=== PATIENT | female | born 1950 | race Caucasian/White ===

== ENCOUNTER → 2016-10-29 | Outpatient (CLI) | payer MEDICARE ==
--- NOTE | 2016-10-29 15:50 | BD ---
EXAMINATION TYPE: MG DEXA axial skeleton. DATE OF EXAM: 10/29/2016 1:57 PM COMPARISON: Prior DEXA bone scan January 14, 2013. CLINICAL HISTORY: Disorder of bone per order. Height: 62.5 IN Weight: 205 LBS FRAX RISK QUESTIONS: Alcohol (3 or more units per day): NO Family History (Parent hip fracture): NO Glucocorticoids (More than 3mos): NO (Ex: prednisone, prednisolone, methylprednisolone, dexamethasone, and hydrocortisone). History of Fracture in Adulthood: NO Secondary Osteoporosis: 1. Type 1 Diabetes: NO 2. Hyperthyroidism: NO 3. Menopause before 45: NO 4. Malnutrition: NO 5. Chronic liver disease: NO Rheumatoid Arthritis: NO Current Tobacco Use: NO RISK FACTORS HISTORY OF: Active: YES Postmenopausal woman: AGE 51 Take estrogen and/or progesterone medications: NOT N OW How long: CONTROL AGE 26 - 36 MEDICATIONS: Thyroid Medications: YES Which medication: Synthroid How Lon + YRS Osteoporosis Medications: NOT NOW Which medication: Boniva How Long: AGE 56 - 59 Additional Medications: CALCIUM, VIT D, SYNTHROID, TENORMIN,CHOLESTEROL MED, EXAM MEASUREMENTS: Bone mineral densitometry was performed using the [employer] System. Bone mineral density as measured about the Lumbar spine is: ----- L1-L4(G/cm2): 1.317 T Score Values are as follows: ----- L2: 0.6 ----- L3: 0.9 ----- L4: 1.8 ----- L1-L4: 1.1 Bone mineral density has: Increased 0.2% since study of: 01/14/2013 Bone mineral density about the R hip (g/cm2): 0.847 Bone mineral density about the L hip (g/cm2): 0.848 T Score values are as follows: -----R Neck: -1.4 -----L Neck: -1.4 -----R Intertrochanter: -1.4 -----L Intertrochanter: -1.4 Bone mineral density has: Decreased -2.0% since study of: 01/14/2013 IMPRESSION: Osteopenia (T Score between -2.5 and -1 as noted by T score values in both hips remains present. Ther e remains slightly increased risk of fracture and the patient may be considered for treatment. Re-Sc reen 1-2 years. NOTE: T-SCORE=SD OF THE YOUNG ADULT MEAN.
--- NOTE | 2016-10-31 07:43 | MM ---
Reason for exam: screening (asymptomatic). Last mammogram was performed 3 years and 8 months ago. History: Patient is postmenopausal. Physical Findings: A clinical breast exam by your physician is recommended on an annual basis and results should be correlated with mammographic findings. MG 3D Screening Mammo W/Cad Bilateral CC and MLO view(s) were taken. Prior study comparison: February 22, 2013, bilateral digital screening mammo w/CAD. January 15, 2012, bilateral digital screening mammo w/CAD. March 31, 2010, bilateral digital screening mammogram. There are scattered fibroglandular densities. No significant changes when compared with prior studies. ASSESSMENT: Negative, BI-RAD 1 RECOMMENDATION: Routine screening mammogram of both breasts in 1 year.
== END ==
LOC: RADMAMWWP 13:53
PROVIDERS: ATTEND Obstetrics & Gynecology
DX: Z12.31 Encounter for screening mammogram for malignant neoplasm of breast (principal); M85.851 Other specified disorders of bone density and structure, right thigh; M85.852 Other specified disorders of bone density and structure, left thigh
CPT/HCPCS: 77080; 77063; G0202

== ENCOUNTER → 2019-05-26 | Outpatient (CLI) | payer MEDICARE ==
--- NOTE | 2019-05-26 11:04 | BD ---
EXAMINATION TYPE: Axial Bone Density DATE OF EXAM: 05/26/2019 COMPARISON: 10.29.2016 CLINICAL HISTORY: M [age] Height: 62.5 Weight: 183.2 FRAX RISK QUESTIONS: Alcohol (3 or more units per day): no Family History (Parent hip fracture): no Glucocorticoids (More than 3mos): no (Ex: prednisone, prednisolone, methylprednisolone, dexamethasone, and hydrocortisone). History of Fracture in Adulthood: no Secondary Osteoporosis: 1. Type 1 Diabetes: no 2. Hyperthyroidism: no 3. Menopause before 45: no 4. Malnutrition: no 5. Chronic liver disease: no Rheumatoid Arthritis: no Current Tobacco Use: no RISK FACTORS HISTORY OF: Family History of Osteoporosis: no Active: sometimes Diet low in dairy products/other sources of calcium: no Postmenopausal woman: age 54 Lost more than 2 inches in height since high school: no MEDICATIONS: blood pressure, Zocor Thyroid Medications: synthroid How Long: long time Additional History: EXAM MEASUREMENTS: Bone mineral densitometry was performed using the [employer] System. Bone mineral density as measured about the Lumbar spine is: ----- L1-L4(G/cm2): 1.297 T Score Values are as follows: ----- L2: 0.6 ----- L3: 0.6 ----- L4: 1.2 ----- L1-L4: 1.0 Bone mineral density has: decreased -3.1 % since study of: 10.29.2016 Bone mineral density about the R hip (g/cm2): 0.892 Bone mineral density about the L hip (g/cm2): 0.848 T Score values are as follows: -----R Neck: -1.0 -----L Neck: -1.4 -----R Total: -1.2 -----L Total: -1.4 Bone mineral density has: decreased -0.6 % since study of: 10.29.2016 IMPRESSION: Osteopenia (T Score between -2.5 and -1). There is slightly increased risk of fracture and the patient may be considered for treatment. Re-Screen 2-5 years. NOTE: T-SCORE=SD OF THE YOUNG ADULT MEAN.
--- NOTE | 2019-05-26 13:47 | MM ---
Reason for exam: screening (asymptomatic). Last mammogram was performed 2 years and 7 months ago. History: Patient is postmenopausal. Physical Findings: A clinical breast exam by your physician is recommended on an annual basis and results should be correlated with mammographic findings. MG 3D Screening Mammo W/Cad Bilateral CC and MLO view(s) were taken. Prior study comparison: October 29, 2016, bilateral MG 3d screening mammo w/cad. February 22, 2013, bilateral digital screening mammo w/CAD. There are scattered fibroglandular densities. There is a stable left upper outer quadrant retroarolar subcentimeter mass. No suspicious abnormality. No significant changes when compared with prior studies. ASSESSMENT: Benign, BI-RAD 2 RECOMMENDATION: Routine screening mammogram of both breasts in 1 year.
== END | disposition home or self-care (01) ==
LOC: RADMAMWWP 10:08
PROVIDERS: ATTEND Obstetrics & Gynecology
DX: Z12.31 Encounter for screening mammogram for malignant neoplasm of breast (principal); Z13.820 Encounter for screening for osteoporosis; M85.80 Other specified disorders of bone density and structure, unspecified site; N95.1 Menopausal and female climacteric states
CPT/HCPCS: 77063; 77067; 77080

== ENCOUNTER → 2023-03-06 | Outpatient (CLI) | payer MEDICARE ==
--- NOTE | 2023-03-06 10:04 | BD ---
EXAMINATION TYPE: Axial Bone Density DATE OF EXAM: 03/06/2023 CLINICAL HISTORY: 72 years old Female. ICD-10 CODE: M85.88 disorder of bone de Height: 62.1 Weight: 185 FRAX RISK QUESTIONS: History of Fracture in Adulthood: yes RISK FACTORS HISTORY OF: hx of broken hand as an adult Postmenopausal woman: yes, in her 50s Lost more than 2 inches in height since high school: yes Hyperparathyroidism: no Adrenal Insufficiency: no MEDICATIONS: Thyroid Medications: yes, synthroid, about 50 yrs Additional Medications: bp med, reflux meds, statin for cholesterol, vit d and ca Additional History: thyroid, hypertension cholesterol, EXAM MEASUREMENTS: Bone mineral densitometry was performed using the [employer] System. Bone mineral density as measured about the Lumbar spine is: ----- L1-L4(G/cm2): 1.293 T Score Values are as follows: ----- L1: 0.8 ----- L2: 0.7 ----- L3: 0.4 ----- L4: 1.6 ----- L1-L4: 0.9 Z Score Values are as follows: ----- L1: 1.8 ----- L2: 1.7 ----- L3: 1.5 ----- L4: 2.6 ----- L1-L4: 2.0 Bone mineral density has: Decreased -0.3% since study of: 05.26.2019 Bone mineral density about the R hip (g/cm2): 0.826 Bone mineral density about the L hip (g/cm2): 0.794 T Score values are as follows: -----R Neck: -1.4 -----L Neck: -1.7 -----R Total: -1.4 -----L Total: -1.7 Z Score values are as follows: -----R Neck: -0.1 -----L Neck: -0.3 -----R Total: -0.4 -----L Total: -0.6 Bone mineral density has: Decreased -3.7% since study of: 05.26.2019 FRAX%s: The graph provided illustrates a 16.0% chance for a major osteoporotic fx and a 2.6% chance f or the hips probability for fx in 10 years time. IMPRESSION: Osteopenia (T Score between -2.5 and -1). There is slightly increased risk of fracture and the patient may be considered for treatment. Re-Screen 2-5 years. NOTE: T-SCORE=SD OF THE YOUNG ADULT MEAN.
--- NOTE | 2023-03-07 10:24 | MM ---
Reason for Exam: Screening (asymptomatic). Last mammogram was performed 3 year(s) and 9 month(s) ago. Patient History: Menarche at age 14. First Full-Term at age 30. Postmenopausal. Risk Values: Yuridia 5 year model risk: 1.9%. NCI Lifetime model risk: 5.4%. Prior Study Comparison: 02/22/2013 Bilateral Screening Mammogram, [facility]. 10/29/2016 Bilateral Screening Mammogram, [facility]. 05/26/2019 Bilateral Screening Mammogram, [facility]. Tissue Density: The breast tissue is heterogeneously dense. This may lower the sensitivity of mammography. Findings: Analyzed By CAD. There is no suspicious group of microcalcifications or new suspicious mass in either breast. Overall Assessment: Benign, BI-RAD 2 Management: Screening Mammogram of both breasts in 1 year. . Patient should continue monthly self-breast exams. A clinical breast exam by your physician is recommended on an annual basis. This exam should not preclude additional follow-up of suspicious palpable abnormalities. Note on Yuridia scores and lifetime risk: 1. A Yuridia score greater than 3% is considered moderate risk. If this is the case, consider specialist referral to assess eligibility for a risk reducing agent. 2. If overall lifetime risk for the development of breast cancer is 20% or higher, the patient may qualify for future screening with alternating mammogram and breast MRI. Electronically signed and approved by: Pierre Toldeo M.D. Radiologis
== END | disposition home or self-care (01) ==
LOC: RADBDWWP 09:11
PROVIDERS: ATTEND Family Medicine
DX: Z12.31 Encounter for screening mammogram for malignant neoplasm of breast (principal); M85.88 Other specified disorders of bone density and structure, other site; Z78.0 Asymptomatic menopausal state
CPT/HCPCS: 77063; 77067; 77080